=== PATIENT | female | born 1970 | race Caucasian/White ===

== ENCOUNTER 2020-08-28 07:50 | Day surgery (SDC) | payer BC ==
[~2020-08-28] VITALS: Ht 160 cm; Wt 60.3 kg
[~2020-08-28 07:50] MED LIST: ALBU90OI6; AMLO10 PO; AMLO5 PO; ASCO500 PO; BUPR150ER PO; BUPR150T2 PO; CALCIUM GLUCONA; CHLO25 PO; CHOL10002 PO; CRANBERRY TABS PO; CYAN1000 PO; Cranberry300 MG; DISU250; FAMO10 PO; IBUP200; IBUP400 PO; LORA.5 PO; MULVITMIND PO; OMEP20ER PO; SERT25 PO; VENL150ER; Vitamin C100 M1
== END 2020-08-28 10:46 | disposition home or self-care (01) ==
LOC: ORSCSDS 07:50
PROVIDERS: Internal Medicine Gastroenterology
PROC: 0DBN8ZX Excision of Sigmoid Colon, Via Natural or Artificial Opening Endoscopic, Diagnostic (ICD-10-PCS; principal; 2020-08-28 09:00)
PROC: 0DBK8ZX Excision of Ascending Colon, Via Natural or Artificial Opening Endoscopic, Diagnostic (ICD-10-PCS; principal; 2020-08-28 09:00)
PROC: 0DBL8ZX Excision of Transverse Colon, Via Natural or Artificial Opening Endoscopic, Diagnostic (ICD-10-PCS; principal; 2020-08-28 09:00)
DX: K62.5 Hemorrhage of anus and rectum (principal); D12.3 Benign neoplasm of transverse colon; D12.5 Benign neoplasm of sigmoid colon; D12.2 Benign neoplasm of ascending colon; K57.30 Diverticulosis of large intestine without perforation or abscess without bleeding; F17.210 Nicotine dependence, cigarettes, uncomplicated; I10 Essential (primary) hypertension; Z79.899 Other long term (current) drug therapy
CPT/HCPCS: 88305; J0330; J0461; J2405; J2704; J7120

== ENCOUNTER 2022-09-11 08:17 | Day surgery (SDC) | payer BC ==
[~2022-09-11] VITALS: Ht 157.5 cm; Wt 57.5 kg
[2022-09-11 11:07] VITALS: BP 120/86
== END 2022-09-11 11:00 | disposition home or self-care (01) ==
LOC: ORSCSDS 08:17
PROVIDERS: Internal Medicine Gastroenterology
PROC: 0DJD8ZZ Inspection of Lower Intestinal Tract, Via Natural or Artificial Opening Endoscopic (ICD-10-PCS; principal; 2022-09-11 09:45)
DX: Z12.11 Encounter for screening for malignant neoplasm of colon (principal); Z86.010 Personal history of colon polyps; K57.30 Diverticulosis of large intestine without perforation or abscess without bleeding; F17.210 Nicotine dependence, cigarettes, uncomplicated; Z79.899 Other long term (current) drug therapy
CPT/HCPCS: J2704; J7120

== ENCOUNTER 2024-02-20 18:55 | Emergency (ER) | payer BC ==
[~2024-02-20] VITALS: Ht 165.1 cm; Wt 65.8 kg
[2024-02-20 19:29] VITALS: BP 149/102
[2024-02-20] MEDS ORDERED: HYDROcodone 5-APAP 325 TAB PO ONE (21:05)
[2024-02-20] MEDS ORDERED: Diphth,Pertuss(Acell),Tet Vac 0.5 ML VIAL IM ONE (21:05)
[2024-02-20] MEDS ORDERED: Lidocaine/Tetracaine/Epinephr 3 ML GEL SYRINGE TOP ONE (21:05)
[2024-02-20] MEDS ORDERED: HYDR1TAB94 PO (21:26)
[2024-02-20] MEDS ORDERED: RX Prepack 6 Tabs Oxycodone 5mg UD ONE (22:10)
== END 2024-02-20 22:25 | disposition home or self-care (01) ==
LOC: ER 18:55
DX: S06.0X0A Concussion without loss of consciousness, initial encounter (principal); S62.244A Nondisplaced fracture of shaft of first metacarpal bone, right hand, initial encounter for closed fracture; S01.81XA Laceration without foreign body of other part of head, initial encounter; F17.200 Nicotine dependence, unspecified, uncomplicated; W19.XXXA Unspecified fall, initial encounter
CPT/HCPCS: 29125; 70450; 73140; 90471; 90715; 99284-25; A9270